=== PATIENT | female | born 1970 | race Two or more races ===

== ENCOUNTER 2023-08-14 08:04 | Outpatient (RCR) | payer MEDICAID, SELFPAY | END 2023-09-05 23:59 | disposition home or self-care (01) | LOC: CPTX 08:04 | PROVIDERS: PCP Physical Medicine & Rehabilitation Pain Medicine; Referring Provider Physical Medicine & Rehabilitation Pain Medicine; Visit Provider Physical Medicine & Rehabilitation Pain Medicine | DX: Z53.29 Procedure and treatment not carried out because of patient's decision for other reasons (principal) ==

== ENCOUNTER → 2024-05-08 | Outpatient (CLI) | payer MEDICAID, SELFPAY ==
--- NOTE | 2024-05-08 12:00 | XR_ITS ---
Examination: MRI lumbar spine without contrast Date and time of exam: May 08, 2024 1204 hours Technique: Multiple MRI axial and sagittal sections lumbar spine. Sagittal T2-weighted images, TR 3500, TE 118 T1 weighted transverse sections, TR 688 T8.5, T2-weighted sagittal sections T1 weighted sagittal sections TR 621, TE 30 T2 axial sections, TR 4, 190, TE 84. Findings: Grade 2 spondylolisthesis L4 on L5 Advanced disc narrowing L4-L5 Advanced disc narrowing T12-L1 Diffuse lumbar disc desiccation No lumbar fracture L5-S1 no disc protrusion Grade 2 spondylolisthesis L4 on L5 produces moderate left severe right L4 ganglionic compression L3-L4 no disc protrusion L2-L3 no disc protrusion L1-L2 no disc protrusion IMPRESSION: Grade 2 spondylolisthesis L4 on L5 produces moderate left severe right L5 ganglionic compression
== END | disposition home or self-care (01) ==
PROVIDERS: PCP Physician Assistant; Referring Provider Physical Medicine & Rehabilitation Pain Medicine; Visit Provider Physical Medicine & Rehabilitation Pain Medicine
DX: M43.16 Spondylolisthesis, lumbar region (principal); G95.20 Unspecified cord compression
CPT/HCPCS: 72148